=== PATIENT | female | born 1965 | race Caucasian/White ===

== ENCOUNTER 2017-05-14 03:41 | Emergency (ER) | payer OTHER ==
[~2017-05-14] VITALS: Ht 157.5 cm; Wt 65.8 kg
[~2017-05-14 03:41] MED LIST: ATEN50TA PO; LOSA25TA3 PO
[2017-05-14 03:52] VITALS: BP 163/96
== END 2017-05-14 06:07 | disposition home or self-care (01) ==
LOC: ER 03:42
DX: M62.838 Other muscle spasm (principal); F41.9 Anxiety disorder, unspecified; I10 Essential (primary) hypertension; Z90.49 Acquired absence of other specified parts of digestive tract
CPT/HCPCS: A4606; Z7610

== ENCOUNTER 2017-10-23 01:03 | Emergency (ER) | payer OTHER ==
[~2017-10-23] VITALS: Ht 152.4 cm; Wt 63.5 kg
[2017-10-23 01:12] VITALS: BP 154/96
== END 2017-10-23 01:27 | disposition home or self-care (01) ==
LOC: ER 01:05
DX: J06.9 Acute upper respiratory infection, unspecified (principal); I10 Essential (primary) hypertension; Z90.49 Acquired absence of other specified parts of digestive tract; Z79.899 Other long term (current) drug therapy
CPT/HCPCS: 99281; A4606; Z7610; Z7502

== ENCOUNTER 2021-02-05 15:44 | Emergency (ER) | payer OTHER ==
[~2021-02-05] VITALS: Ht 152.4 cm; Wt 69.4 kg
--- NOTE | 2021-02-05 16:03 | NUR ---
CAME IN FOR "FEELING PALPITATIONS SINCE THIS MORNING, ALSO FEELING ANXIOUS AND LITTLE NAUSEOUS". TO ER BED 9, HOOKED TO MONITOR, CHANGED TO HOSP GOWN, WARM BLANKET PROVIDED, PATIENT AAO x 4. NAD NOTED. AWAITING MD SHANKS
--- NOTE | 2021-02-05 16:13 | NUR ---
DR LANDIN AT BEDSIDE
[2021-02-05 16:23] LABS: BASOPHILS % (AUTO) 0.7 % (0.0-2.0); EOSINOPHILS % (AUTO) 4.9 % (0.0-6.0); HEMATOCRIT 41 % (33-45); HEMOGLOBIN 14.2 g/dL (11.5-14.8); LYMPHOCYTES # (AUTO) 1.6 /CMM (0.8-4.8); LYMPHOCYTES % (AUTO) 23.6 % (20.0-44.0); MEAN CORPUSCULAR HGB CONC 34 g/dl (31.0-36.0); MEAN CORPUSCULAR VOLUME 92 fL (82-100); MONOCYTES # (AUTO) 0.4 /CMM (0.1-1.30); MONOCYTES % (AUTO) 6.1 % (2.0-12.0); NEUTROPHILS # (AUTO) 4.4 /CMM (1.8-8.9); NEUTROPHILS % (AUTO) 64.7 % (43.0-81.0); PLATELET COUNT (AUTO) 251 /CMM (150-450); WHITE BLOOD COUNT (AUTO) 6.7 K/uL (4.3-11.0)
--- NOTE | 2021-02-05 16:26 | NUR ---
radiological technician at bedside for xray
[2021-02-05] MEDS ORDERED: ASPIRIN 325 MG TABLET ONE (16:28)
[2021-02-05] MEDS ORDERED: ASPIRIN 325 MG TABLET PO ONE (16:30)
[2021-02-05 16:41] LABS: D-DIMER 0.27 mg/L(FEU (0.17-0.50)
[2021-02-05 16:46] LABS: ALBUMIN 3.8 g/dL (3.4-5.0); BILIRUBIN,DIRECT 0.1 mg/dL (0.0-0.2); BILIRUBIN,TOTAL 0.2 mg/dL (0.2-1.0); CALCIUM, SERUM 9.7 mg/dL (8.5-10.1); CREATININE 0.8 mg/dL (0.6-1.3); POTASSIUM 3.3 mmol/L (3.5-5.1); TOTAL PROTEIN, SERUM 8.7 g/dL (6.4-8.2)
[2021-02-05] MEDS ORDERED: LOSA100T31 PO (17:08)
[2021-02-05] MEDS ORDERED: CARV6.252 PO (17:08)
[2021-02-05] MEDS ORDERED: BISO5TAB20 PO (17:08)
[2021-02-05] MEDS ORDERED: POTASSIUM CHLORIDE 20 MEQ TAB.PRT.SR PO ONE ×2 (17:27→17:30)
--- NOTE | 2021-02-05 18:00 | NUR ---
IV removed. Catheter intact and site benign. Pressure and 4x4 applied to site. No bleeding noted.Patient discharged to home in stable condition. Written and verbal after care instructions given. Patient verbalizes understanding of instruction.
[2021-02-05 18:05] VITALS: BP 147/96
== END 2021-02-05 18:05 | disposition home or self-care (01) ==
LOC: ER 15:45
DX: R00.2 Palpitations (principal); I10 Essential (primary) hypertension; Z90.49 Acquired absence of other specified parts of digestive tract; Z79.899 Other long term (current) drug therapy
CPT/HCPCS: 36415; 71045-TC; 80048-TC; 80076-TC; 83880; 84443-TC; 84484-TC; 85025-TC; 85378-TC; 85730-TC

== ENCOUNTER 2022-03-31 17:36 | Emergency (ER) | payer OTHER ==
[~2022-03-31] VITALS: Ht 157.5 cm; Wt 65.8 kg
[~2022-03-31 17:36] MED LIST changes: -ATEN50TA PO; +BISO5TAB20 PO; +CARV6.252 PO; +LOSA100T31 PO; -LOSA25TA3 PO
[2022-03-31] MEDS ORDERED: LIDOCAINE HCL/PF 1% 30 ML SDV ONE (17:45)
--- NOTE | 2022-03-31 17:45 | NUR ---
DR GOEL ASSESSING THE PATIENT.
--- NOTE | 2022-03-31 17:48 | NUR ---
BIBS FOR C/O RIGHT INDEX LAC WITH MIN BLEED AND PAIN 9/10. WILL CONTINUE TO MONITOR THE PATIENT.
--- NOTE | 2022-03-31 18:25 | NUR ---
LIDOCAINE 1% ONCE PER DR LAW. THE ORDER IS READ BACK, VERIFIED. NOTED AND CARRIED OUT.
--- NOTE | 2022-03-31 18:28 | NUR ---
Patient discharged to home in stable condition. Written and verbal after care instructions given. Patient verbalizes understanding of instruction.
[2022-03-31 18:29] VITALS: BP 138/84
[2022-03-31] MEDS ORDERED: LIDOCAINE HCL/PF 1% 30 ML SDV IJ ONE (18:30)
== END 2022-03-31 18:29 | disposition home or self-care (01) ==
LOC: ER 17:47
DX: S61.210A Laceration without foreign body of right index finger without damage to nail, initial encounter (principal); I10 Essential (primary) hypertension; Z90.49 Acquired absence of other specified parts of digestive tract; Z79.899 Other long term (current) drug therapy; W26.0XXA Contact with knife, initial encounter; Y93.89 Activity, other specified; Y92.89 Other specified places as the place of occurrence of the external cause; Y99.8 Other external cause status
CPT/HCPCS: 12001; 99282; A6403; J3490

== ENCOUNTER 2022-04-09 17:03 | Emergency (ER) | payer OTHER ==
[~2022-04-09] VITALS: Ht 157.5 cm; Wt 65.8 kg
[2022-04-09 17:10] VITALS: BP 133/79
--- NOTE | 2022-04-09 19:05 | NUR ---
Patient discharged to home in stable condition. Written and verbal after care instructions given. Patient verbalizes understanding of instruction. Pt ambulatory with a steady gait
== END 2022-04-09 19:05 | disposition home or self-care (01) ==
LOC: ER 17:08
DX: S61.210D Laceration without foreign body of right index finger without damage to nail, subsequent encounter (principal); Z48.02 Encounter for removal of sutures; I10 Essential (primary) hypertension; Z90.49 Acquired absence of other specified parts of digestive tract; Z79.899 Other long term (current) drug therapy; X58.XXXD Exposure to other specified factors, subsequent encounter